=== PATIENT | male | born 1955 | race Caucasian/White ===

== ENCOUNTER 2016-11-06 02:19 | Emergency (ER) | payer MEDICAID, OTHER ==
[~2016-11-06] VITALS: Ht 188 cm; Wt 77.1 kg
[2016-11-06] MEDS ORDERED: EPINEPHrine HCL 1 MG/10 ML SYRG ONE (02:41)
[2016-11-06] MEDS ORDERED: SODIUM BICARBONATE 8.4% INJ 50ML SYRINGE ONE (02:43)
[2016-11-06] MEDS ORDERED: NOREPINEPHRINE BITARTRATE 250 ML IV ONE (02:50)
[2016-11-06 04:43] LABS: Basophils # (auto) 0 uL; Basophils % (auto) 0.5 % (0.0-2.0); Eosinophils # (auto) 0.4 uL; Eosinophils % (auto) 4.3 % (0.0-7.0); Hematocrit 37.6 % (41.0-53.0); Hemoglobin 12.2 g/dL (13.5-17.5); Lymphocytes # (auto) 3.6 uL; Lymphocytes % (auto) 41.2 % (10.0-50.0); Mean Corpuscular Hemoglobin 30.2 pg (28.0-32.0); Mean Corpuscular Hgb Conc. 32.4 g/dL (32.0-36.0); Mean Corpuscular Volume 93.4 fL (80.0-100.0); Monocytes # (auto) 0.5 uL; Monocytes % (auto) 6.1 % (0.0-12.0); Neutrophils # (auto) 4.2 uL; Neutrophils % (auto) 47.9 % (37.0-80.0); Platelet Count (auto) 162 10^3/uL (140-450); Red Cell Distribution Width 14.8 % (11.6-16.0); White Blood Cell 8.8 10^3/uL (4.4-10.8)
[2016-11-06 05:01] LABS: Albumin 1.9 g/dL (3.4-5.0); BUN/Creatinine Ratio 14.5; Magnesium 2.7 mg/dL (1.6-2.6)
[2016-11-06 05:06] LABS: Bilirubin, Total 0.6 mg/dL (0.2-1.0)
[2016-11-06 05:15] LABS: B-Type Natriuretic Peptide 53.26 pg/mL (0-100)
[2016-11-06 05:29] LABS: Potassium 2.6 mmol/L (3.5-5.1)
[2016-11-06 05:31] LABS: INR > 10 (0.9-1.15); Partial Thromboplastin Time > 170.00 sec (22.64-33.71)
[2016-11-06] MEDS ORDERED: CALCIUM CHLOR(10%) 100MG/ML 10ML SYRINGE IV ONE (15:41)
[2016-11-06] MEDS ORDERED: EPINEPHrine HCL 1 MG/10 ML SYRG IV ONE (15:41)
[2016-11-06] MEDS ORDERED: SODIUM BICARBONATE 8.4% INJ 50ML SYRINGE IV ONE (15:41)
== END 2016-11-06 03:31 | disposition expired ==
LOC: EDBD 02:19 → ER 02:24
DX: I46.9 Cardiac arrest, cause unspecified (principal); E11.9 Type 2 diabetes mellitus without complications; I25.2 Old myocardial infarction; Z86.73 Personal history of transient ischemic attack (TIA), and cerebral infarction without residual deficits
CPT/HCPCS: 31500; 36415; 80053; 83735; 83880; 84443; 84484; 85025; 85379; 85610; 85730; 92950; 99291; J0171; J3490; J7030